=== PATIENT | male | born 1950 ===

== ENCOUNTER 2017-10-21 20:22 | Observation (INO) | payer MEDICAID, SELFPAY ==
[2017-10-21 20:22] VITALS: BMI 28.9
--- NOTE | 2017-10-21 21:37 | ED PDOC ---
HPI: Dental Pain/Injury Time Seen by Provider: 10/21/17 20:56 Chief Complaint (Nursing): High Blood Pressure Chief Complaint (Provider): High Blood Pressure and Dental Pain History Per: Patient History/Exam Limitations: no limitations Onset/Duration Of Symptoms: Days (x 3) Current Symptoms Are (Timing): Still Present Additional Complaint(s): 67 year old male with a history of HTN, Hepatitis C, diabetes and CAD presents to the ED complaining of elevated BP and dental pain, onset 3 days ago. Patient reports having bad teeth and is supposed to see a dentist. No medications were taken for dental pain. Dental pain is constant in right lower jaw. He took his normal medications (Zestril and Lipitor) for high blood pressure but it has not lowered. Patient also reports an episode of chest pain early this morning. Patient has had a headache and high blood pressure all day. Also reports having body aches for the last few days. Denies any chest pain currently, weakness, numbness and changes in vision or gait. PMD: Dr. Renato Encarnacion MD NIHSS Stroke Scale - Date/Time Evaluation Performed Date Performed: 10/21/17 - How Severe is the Stroke Level of Consciousness: 0=Alert LOC to Questions: 0=Both comments correct LOC to commands: 0=Obeys both correctly Best Gaze: 0=Normal Visual: 0=No visual loss Facial: 0=Normal Motor Arm - Left: 0=No drift Motor Arm - Right: 0=No drift Motor Leg - Left: 0=No drift Motor Leg - Right: 0=No drift Limb Ataxia: 0=Absent Sensory: 0=Normal Best Language: 0=No aphasia Dysarthia: 0=Normal articulation Extinction & Inattention (Neglect): 0=Normal, no object Score: 0 Past Medical History Reviewed: Historical Data, Nursing Documentation, Vital Signs Vital Signs: Last Vital Signs Temp 99.2 F 10/21/17 20:42 Pulse 96 H 10/21/17 20:42 Resp 18 10/21/17 20:42 BP 223/125 H 10/21/17 20:42 Pulse Ox 99 10/21/17 20:42 - Medical History PMH: CAD, CVA, Diabetes, Hepatitis, HTN, Hypercholesterolemia Denies: Chronic Kidney Disease - Surgical History Surgical History: CABG Denies: Pacemaker Other surgeries: Craniotomy - Family History Family History: States: No Known Family Hx - Immunization History Hx Tetanus Toxoid Vaccination: No Hx Influenza Vaccination: No Hx Pneumococcal Vaccination: No - Home Medications Home Medications: Ambulatory Orders Medication Instructions Recorded Aspirin [Ecotrin] 81 mg PO DAILY #0 tabec 08/23/16 Atorvastatin [Lipitor] 10 mg PO DIN #14 tab 08/23/16 Glimepiride [Amaryl] 2 mg PO DAILY 10/15/17 MetFORMIN [glucoPHAGE] 1,000 mg PO BID 10/15/17 Tamsulosin [Flomax] 0.4 mg PO DAILY 10/15/17 Lisinopril [Zestril] 20 mg PO DAILY 10/17/17 - Allergies Allergies/Adverse Reactions: Allergies Allergy/AdvReac Type Severity Reaction Status Date / Time No Known Allergies Allergy Verified 10/21/17 20:41 Review of Systems ROS Statement: Except As Marked, All Systems Reviewed And Found Negative Constitutional: Negative for: Weakness Eyes: Negative for: Vision Change Cardiovascular: Negative for: Chest Pain Musculoskeletal: Positive for: Other (Dental pain in right lower jaw) Neurological: Positive for: Headache. Negative for: Weakness, Numbness, Change in Speech, Dizziness Physical Exam - Reviewed Nursing Documentation Reviewed: Yes Vital Signs Reviewed: Yes - Physical Exam Appears: Positive for: Non-toxic, No Acute Distress Head Exam: Positive for: ATRAUMATIC, NORMOCEPHALIC Skin: Positive for: Normal Color, Warm, Dry Eye Exam: Positive for: EOMI, Normal appearance, PERRL Neck: Positive for: Normal, Painless ROM, Supple Cardiovascular/Chest: Positive for: Regular Rate, Rhythm Respiratory: Positive for: CNT, Normal Breath Sounds Gastrointestinal/Abdominal: Positive for: Normal Exam, Soft Extremity: Positive for: Normal ROM Neurologic/Psych: Positive for: Alert, Oriented (x 4), Gait (steady). Negative for: Motor/Sensory Deficits, Aphasia - Laboratory Results Result Diagrams: 10/21/17 21:46 10/21/17 21:46 - ECG ECG: Positive for: Interpreted By Me, Viewed By Me ECG Rhythm: Positive for: Normal QRS, Normal ST Segment, Sinus Rhythm (normal). Negative for: ST/T Changes Rate: 90 O2 Sat by Pulse Oximetry: 99 (RA) Pulse Ox Interpretation: Normal Medical Decision Making Medical Decision Making: Time: 21:37 Impression: HTN related complications such as headache and chest pain, rule out CVA although less likely. Dental pain: dental infection, abscess less likely. Chest pain: rule out ACS Initial Plan: --head CT --EKG --BMP --Troponin I --CBC --Dilaudid .5 mg IVP EKG --Normal sinus rhythm, normal QRS wave, no ST changes, rate is [address] FINDINGS: Brain: There is mild prominence of sulci gyri and ventricles. There is no midline shift. There is decreased attenuation in periventricular white matter. There is an old right cerebellar infarct. There are no focal masses. There are no focal hemorrhages. Ramirez-white differentiation is visualized. Ventricles: See above Bones: There is an old right occipital craniotomy defect. Soft tissues: unremarkable Sinuses: There is no acute sinusitis. Ears and mastoids: Middle ears and mastoids are unremarkable. Orbits: Orbital contents are unremarkable. IMPRESSION: No acute intracranial abnormality; remote right occipital craniotomy with postsurgical change in the right cerebellum [id number] Discussed case and findings with PCP Dr. Encarnacion, who will admit patient under his service for HTN and chest pain. Scribe Attestation: Documented by Cecilia Chavez and Tamy Gonzalez, acting as a scribe for Fan Starr MD Provider Scribe Attestation: All medical record entries made by the Scribe were at my direction and personally dictated by me. I have reviewed the chart and agree that the record accurately reflects my personal performance of the history, physical exam, medical decision making, and the department course for this patient. I have also personally directed, reviewed, and agree with the discharge instructions and disposition Disposition - Clinical Impression Clinical Impression: CAD (coronary artery disease) of artery bypass graft, Chest pain, Toothache, Hypertension - Patient ED Disposition Is Patient to be Admitted: Yes Discussed With DrNeli: Renato Encarnacion Doctor Will See Patient In The: Hospital Counseled Patient/Family Regarding: Studies Performed, Diagnosis - Disposition Disposition Time: 00:42 Condition: FAIR - Pt Status Changed To: Hospital Disposition Of: Observation (OBS TELE) - POA Present On Arrival: Poor Glycemic Control IVTE Risk Score for UA/NSTEMI - IVET Risk Score Age > 64: NO 3 or more CAD Risk Factors: YES Known CAD (Stenosis greater than 50%): YES Aspirin use in past 7 days: NO Severe Angina: NO EKG ST changes greater than 0.5mm: NO Positive Cardiac Marker: NO IVET Score: 2 % risk at 14 days of: all cause mortality, new or recurrent CA, or severe recurrent ischemia requiring urgen revascularization: 8%
[2017-10-21] MEDS ORDERED: HYDROmorphone 0.5 mg/0.5 ml ISec IVP STA (21:41)
[2017-10-21 21:51] LABS: BASO # 0.1 K/uL (0.0-0.2); BASO % 1.1 % (0.0-2.0); EOS # 0.1 K/uL (0.0-0.7); EOS % 1.1 % (0.0-4.0); LYMPH # 2.5 K/uL (1.0-4.3); LYMPH % 31.6 % (20.0-40.0); MEAN CELL VOLUME 77.2 fl (80.0-94.0); MEAN CORPUSCULAR HEMOGLOBIN 24.9 pg (27.0-31.0); MEAN CORPUSCULAR HGB CONC 32.3 g/dL (33.0-37.0); MEAN PLATELET VOLUME 8.1 fl (7.2-11.7); MONO # 0.5 K/uL (0.0-0.8); MONO % 6.5 % (0.0-10.0); NEUT # 4.8 K/uL (1.8-7.0); NEUT % 59.7 % (50.0-75.0); NRBC % 0.1 % (0.0-0.0); RBC 4.84 Mil/uL (4.40-5.90); RED CELL DISTRIBUTION WIDTH 13.3 % (11.5-14.5)
[2017-10-21] MEDS ORDERED: HYDROmorphone 0.5 mg/0.5 ml ISec ONE (21:53)
[2017-10-21 22:13] LABS: BLOOD UREA NITROGEN 18 mg/dl (9-20); CALCIUM 9.8 mg/dL (8.4-10.2); GFR AFRICAN-AMERICAN > 60; GFR NON-AFRICAN AMERICAN > 60
--- NOTE | 2017-10-21 23:33 | CT ---
EXAM: CT Head Without Intravenous Contrast EXAM DATE/TIME: 10/21/2017 9:37 PM CLINICAL HISTORY: 67 years old, male; Pain; Headache; Other: Poss. High blood pressure; Prior surgery; Surgery date: 6+ months; Surgery type: Craniotomy , stroke in november 2016 TECHNIQUE: Axial computed tomography images of the head/brain without intravenous contrast. All CT scans at this facility use one or more dose reduction techniques, viz.: automated exposure control; ma/kV adjustment per patient size (including targeted exams where dose is matched to indication; i.e. head); or iterative reconstruction technique. Coronal and sagittal reformatted images were created and reviewed. COMPARISON: MR - BRAIN WITHOUT CONTRAST 2017-06-03 10:49 FINDINGS: Brain: There is mild prominence of sulci gyri and ventricles. There is no midline shift. There is decreased attenuation in periventricular white matter. There is an old right cerebellar infarct. There are no focal masses. There are no focal hemorrhages. Ramirez-white differentiation is visualized. Ventricles: See above Bones: There is an old right occipital craniotomy defect. Soft tissues: unremarkable Sinuses: There is no acute sinusitis. Ears and mastoids: Middle ears and mastoids are unremarkable. Orbits: Orbital contents are unremarkable. IMPRESSION: No acute intracranial abnormality; remote right occipital craniotomy with postsurgical change in the right cerebellum
[2017-10-22 01:24] LABS: ALB/GLOB RATIO 1.1 (1.0-2.1); ALBUMIN 4.3 g/dL (3.5-5.0)
[2017-10-22] MEDS ORDERED: Oxycodone/Acetaminophen 5/325 mg Tab PO ONE (01:45)
[2017-10-22 01:55] LABS: BILIRUBIN,DIRECT 0.3 mg/ml (0.0-0.4)
[2017-10-22] MEDS ORDERED: Oxycodone/Acetaminophen 5/325 mg Tab ONE (02:02)
--- NOTE | 2017-10-22 11:06 | CARD ---
APPROVED REPORT EKG Measurement Heart [id number] <Conclusion> Normal sinus rhythm Normal ECG
[2017-10-22] MEDS ORDERED: Piperacillin/Tazobact 3.375 GM in Sodium Chloride 0.9% 100 ML IVPB STA (16:09)
[2017-10-22 17:44] VITALS: TEMP 98.8
[2017-10-22 19:49] VITALS: BP 140/80; PULSE 76; RESP 16; O2SAT 99
--- NOTE | 2017-10-23 00:13 | CON ---
CARDIOLOGY CONSULTATION DATE: REASON FOR CONSULTATION: Uncontrolled hypertension. HISTORY OF PRESENT ILLNESS: The patient is a 67-year-old [place] male, who has a history of coronary artery disease, underwent cerebral bypass surgery in 2002 in [place]. In 11/2016, he sustained right cerebellar infarct with adjacent hemorrhage and edema and mass effect and underwent posterior craniotomy at [facility]. He presented at this time because of toothache as well as uncontrolled hypertension. The patient was evaluated recently by his airport operations officer, and his Zestril was incased to 20 mg daily. The patient does not recall the name of his airport operations officer. The patient denies any chest pain. SOCIAL HISTORY: Nonsmoker, nondrinker, lives with his . MEDICATIONS: Aspirin 81 mg once a day, Flomax 0.4 mg once a day, Glucophage 1 gm twice a day, Lipitor 40 mg once a day, Zestril 20 mg once a day. REVIEW OF SYSTEMS: No fever or chills, no syncope, and no recent fall. PHYSICAL EXAMINATION: GENERAL: The patient is an elderly male, who does not appear to be in acute distress. VITAL SIGNS: Blood pressure currently is 123/66, heart rate 85, temperature 98.5, respirations 14, initial blood pressure on presentation was 223/125. HEENT: A posterior neck scar is noted from a previous surgery in 11/2016. The patient has poor dental hygiene. NECK: No JVD. CHEST: Clear. HEART: S1 and S2 regular. ABDOMEN: Soft. EXTREMITIES: No edema. EKG revealed normal sinus rhythm at a rate of 90. Head CT scan without contrast, no acute intracranial abnormality, remote right occipital craniotomy with postsurgical changes in the right cerebellum. LABORATORY DATA: Hemoglobin and hematocrit, white count and platelet count are within normal limits. SMA-7 is within normal limits except for glucose of 168. Two sets of troponins are negative. ASSESSMENT: 1. Uncontrolled hypertension. 2. History of right cerebellar infarct with adjacent hemorrhage and edema status post right occipital craniotomy. 3. Diabetes mellitus. 4. Coronary artery disease status post cerebral bypass surgery in 2002. RECOMMENDATIONS: Continue current aspirin at 81 mg once a day, Lipitor at 40 mg once a day, Zestril at 20 mg once a day. The patient did receive oxycodone for his toothache. Consider dental evaluation. Alvarez Vázquez MD [facility] # [id number]
--- NOTE | 2017-10-23 07:38 | HP ---
HISTORY OF PRESENT ILLNESS: This is a 67-year-old Citizen Of [place] male with history of multiple medical problems, status post CVA, on multiple medications, presented to emergency room with dental pain associated with uncontrolled hypertension. Patient was evaluated in emergency room and admitted for further management. ALLERGIES: NO KNOWN ALLERGY. MEDICATIONS: As per MAR. SOCIAL HISTORY: No history of smoking, EtOH or substance abuse. FAMILY HISTORY: Not contributory. PAST MEDICAL HISTORY: CVA, hypertension, type 2 diabetes mellitus, hypercholesterolemia. PHYSICAL EXAMINATION: GENERAL: Patient is in bed, comfortable, not in any cardiopulmonary distress at the time of his examination. VITAL SIGNS: Blood pressure 125/82, temperature 98.5, respiratory rate 16 and pulse 75. HEENT: Pupils equal, reactive to light. Normal-appearing mucosa of the conjunctivae, oropharynx, and nasal membrane mucosa. NECK: Supple. No JVD. No carotid bruit. No lymph node. No thyromegaly. CHEST AND LUNGS: Bilateral symmetrical expansion. Good air exchange. No rales, no rhonchi. CARDIOVASCULAR SYSTEM: PMI not localized. S1, S2. No additional sounds. ABDOMEN: Normoactive bowel sounds. No tenderness. No organomegaly. No masses. EXTREMITIES: No cyanosis, no clubbing, no edema. CENTRAL NERVOUS SYSTEM: Alert, awake, oriented x2. No neurological deficit could be appreciated. ASSESSMENT: Dental caries with gingivitis and severe dental pain, hypertension, type 2 diabetes mellitus, status post cerebrovascular accident. PLAN: Patient's antihypertensive medications were resumed and patient was given antibiotic, Zosyn, one dose and he will be discharged on Augmentin 875 twice a day. Renato Encarnacion MD
--- NOTE | 2017-10-23 20:15 | DS ---
REASON FOR ADMISSION: This is a 67-year-old [place] male with history of multiple medical problems, was admitted for dental pain and uncontrolled hypertension. COURSE OF HOSPITALIZATION: The patient was admitted to medical floor and he was started on IV antibiotics as well as on antihypertensive medications. The patient's blood pressure was controlled and patient was discharged home after seen by Cardiology, to continue p.o. antibiotics, Augmentin 875 mg twice a day and resume antihypertensive medications and follow up with primary care physician, Cardiology as well as dentist. FINAL DIAGNOSES: 1. Dental caries with gingivitis. 2. Uncontrolled hypertension. 3. Type 2 diabetes mellitus. 4. Status post cerebrovascular accident. [facility] MD Shashank
== END 2017-10-22 19:52 | disposition home or self-care (01) ==
LOC: H.ER 20:22 → H.ERHOLD 10-22 00:42
PROVIDERS: ADMIT Internal Medicine; ATTEND Internal Medicine
DX: K02.9 Dental caries, unspecified (principal); I10 Essential (primary) hypertension; Z86.73 Personal history of transient ischemic attack (TIA), and cerebral infarction without residual deficits; E11.9 Type 2 diabetes mellitus without complications; I25.810 Atherosclerosis of coronary artery bypass graft(s) without angina pectoris; E78.00 Pure hypercholesterolemia, unspecified; K05.10 Chronic gingivitis, plaque induced; B19.20 Unspecified viral hepatitis C without hepatic coma
CPT/HCPCS: 70450; 80048; 80076; 82948; 84484; 85025; 93005; 96365; 96374; 99285; G0378; J1170; J2543